=== PATIENT | female | born 2000 | race Caucasian/White ===

== ENCOUNTER 2022-07-21 02:52 | Emergency (ER) | payer MEDICAID ==
[~2022-07-21] VITALS: Ht 160 cm; Wt 110.2 kg
[2022-07-21 03:09] VITALS: BP 121/69
--- NOTE | 2022-07-21 03:30 | NUR ---
Throat specimen collected and sent to lab.
--- NOTE | 2022-07-21 03:51 | NUR ---
PT TO CHAIR.
--- NOTE | 2022-07-21 04:00 | NUR ---
Patient seen and examined by Dr. Ragland.
[2022-07-21] MEDS ORDERED: HYDROcodone/APAP 5/325 MG 1 TAB TAB PO ONE (04:05)
[2022-07-21] MEDS ORDERED: KETOROLAC 30 MG/ML VIAL IM ONE (04:05)
[2022-07-21] MEDS ORDERED: DEXAMETHASONE 10 MG/ML VIAL PO ONE (04:05)
[2022-07-21] MEDS ORDERED: AMOX1TAB8 PO (04:19)
[2022-07-21] MEDS ORDERED: NAPR-54 PO (04:19)
[2022-07-21] MEDS ORDERED: ACET-8905 PO (04:19)
[2022-07-21 04:34] VITALS: BP 118/69
--- NOTE | 2022-07-21 04:34 | NUR ---
Patient discharged with v/s stable. Written and verbal after care instructions given and explained. Patient alert, oriented and verbalized understanding of instructions. Ambulatory with steady gait. All questions addressed prior to discharge. ID band removed. Patient advised to follow up with PMD. Rx of Naproxen, [place] and Amox-Clav given. Patient educated on indication of medication including possible reaction and side effects. Opportunity to ask questions provided and answered.
== END 2022-07-21 04:34 | disposition home or self-care (01) ==
LOC: MED 02:52
DX: J02.9 Acute pharyngitis, unspecified (principal); J45.909 Unspecified asthma, uncomplicated; F17.210 Nicotine dependence, cigarettes, uncomplicated; Z79.899 Other long term (current) drug therapy
CPT/HCPCS: 87081; 96372; 99283; J1100; J1885

== ENCOUNTER 2022-09-17 14:53 | Emergency (ER) | payer MEDICAID ==
[~2022-09-17] VITALS: Ht 162.6 cm; Wt 106.6 kg
[~2022-09-17 14:53] MED LIST: ACET-8905 PO; AMOX1TAB8 PO; NAPR-54 PO
[2022-09-17 15:25] VITALS: BP 109/71; PULSE 129; RESP 20; TEMP 103.1; O2SAT 99
[2022-09-17] MEDS ORDERED: NACL 0.9% 2,000 ML IV SCH (16:00)
[2022-09-17] MEDS ORDERED: ONDANSETRON 4 MG/2 ML VIAL IVP ONE (16:05)
[2022-09-17] MEDS ORDERED: ACETAMINOPHEN 325 MG TAB PO ONE (16:05)
[2022-09-17 16:32] LABS: BASOPHILS % (AUTO) 0.2 % (0.0-2.0); HEMATOCRIT 39.8 % (36-48); HEMOGLOBIN 13.2 g/dL (12.0-16.0); LYMPHOCYTES # (AUTO) 1.2 K/uL (2.5-16.5); LYMPHOCYTES % (AUTO) 9.3 % (20.5-51.1); MEAN CORPUSCULAR HEMOGLOBIN 30 pg (27-31); MEAN CORPUSCULAR HGB CONC 33 g/dL (33-37); MEAN CORPUSCULAR VOLUME 89.5 fL (80-94); MONOCYTES # (AUTO) 0.7 K/uL (0.8-1.0); MONOCYTES % (AUTO) 5.7 % (1.7-9.3); NEUTROPHILS # (AUTO) 10.9 K/uL (1.8-7.7); NEUTROPHILS % (AUTO) 84.8 % (42.2-75.2); PLATELET COUNT (AUTO) 285 K/uL (140-450); RED BLOOD CELL COUNT(AUTO) 4.44 MIL/uL (4.20-5.40); RED CELL DISTRIBUTION WIDTH 12.3 % (11.6-13.7); WHITE BLOOD COUNT (AUTO) 12.9 K/uL (4.8-10.8)
[2022-09-17 16:48] LABS: BILIRUBIN,URINE NEGATIVE (NEGATIVE); BLOOD, URINE TRACE-I (NEGATIVE); COLOR,URINE YELLOW (YELLOW); LEUKOCYTE ESTERASE ,URINE NEGATIVE (NEGATIVE); NITRITE, URINE POSITIVE (NEGATIVE); UGLUCOSE 3+ (NEGATIVE)
[2022-09-17 16:50] LABS: APPEARANCE,URINE HAZY (CLEAR)
[2022-09-17 16:53] LABS: ALBUMIN 3.5 g/dL (3.4-5.0); ANION GAP 11.2 (8-16); CARBON DIOXIDE 28.5 mmol/L (21-32); CREATININE 0.6 mg/dL (0.6-1.3); POTASSIUM 3.7 mmol/L (3.5-5.1); TOTAL BILIRUBIN 0.5 mg/dL (0.0-1.0)
[2022-09-17 17:04] LABS: RBC,URINE 0-5 /HPF (0-5)
[2022-09-17] MEDS ORDERED: CEPH-588 PO (18:00)
[2022-09-17 18:06] VITALS: BP 122/70; PULSE 74; RESP 17; O2SAT 99
== END 2022-09-17 18:06 | disposition home or self-care (01) ==
LOC: MED 14:53
DX: N12 Tubulo-interstitial nephritis, not specified as acute or chronic (principal); Z20.822 Contact with and (suspected) exposure to COVID-19; R00.0 Tachycardia, unspecified; J45.909 Unspecified asthma, uncomplicated; E11.65 Type 2 diabetes mellitus with hyperglycemia; Z79.899 Other long term (current) drug therapy; Z79.2 Long term (current) use of antibiotics; Z79.1 Long term (current) use of non-steroidal anti-inflammatories (NSAID)
CPT/HCPCS: 36415; 71045; 80053; 81001; 81025; 82550; 83605; 83880; 84484; 85025; 87040; 87086; 87426; 87804; 93005; 96361; 96374; 99291; J2405; J7030

== ENCOUNTER 2023-02-28 12:41 | Emergency (ER) | payer MEDICAID, OTHER ==
[~2023-02-28] VITALS: Ht 162.6 cm; Wt 117.9 kg
[~2023-02-28 12:41] MED LIST changes: +CEPH-588 PO
[2023-02-28 13:10] VITALS: BP 149/96; PULSE 112; RESP 20; TEMP 98.7; O2SAT 98
[2023-02-28] MEDS ORDERED: diazePAM 5 MG TAB PO ONE (14:05)
[2023-02-28] MEDS ORDERED: ACETAMINOPHEN EXTRA STRENGTH 500 MG TAB PO ONE (14:05)
[2023-02-28] MEDS ORDERED: KETOROLAC 30 MG/ML VIAL IM ONE (14:05)
[2023-02-28] MEDS ORDERED: LIDOCAINE 5% 1 EA PATCH TP ONE (15:20)
[2023-02-28] MEDS ORDERED: methocarbamoL 500 MG TAB PO STA (15:20)
[2023-02-28] MEDS ORDERED: IBUP-2213 PO (15:50)
[2023-02-28] MEDS ORDERED: LID5T TP (15:50)
[2023-02-28] MEDS ORDERED: METH-1681 PO (15:50)
== END 2023-02-28 15:53 | disposition home or self-care (01) ==
LOC: MED 12:41
DX: M54.6 Pain in thoracic spine (principal); M54.50 Low back pain, unspecified; M25.511 Pain in right shoulder; J45.909 Unspecified asthma, uncomplicated; E11.9 Type 2 diabetes mellitus without complications; Z79.4 Long term (current) use of insulin; Z79.899 Other long term (current) drug therapy
CPT/HCPCS: 72072; 72110; 73030; 96372; 99284; J1885